=== PATIENT | male | born 1965 | race Caucasian/White ===

== ENCOUNTER 2019-04-19 10:04 | Day surgery (SDC) | payer BC ==
[2019-04-18 17:55] VITALS: BMI 33.5
[2019-04-19] VITALS (12 sets, daily range): BP systolic 100–125; BP diastolic 58–82; PULSE 86–94; RESP 14–20; Ht 167.6 cm; Wt 93.0 kg
[~2019-04-19] VITALS: Ht 167.6 cm; Wt 93.0 kg
[~2019-04-19 10:04] MED LIST: CHOL500051 PO; CIPROFLOXACIN 400 MG in D5W 200 ML IVPB ONE; GLIP5TAB13 PO; LANS15CA5 PO; LISI2.5T59 PO; LORA10TA3 PO; METF100010 PO; METO-448 PO; MITOMYCIN 40 MG VIAL IS ONE; TAMS-14 PO
[2019-04-19] MEDS ORDERED: MIDAZOLAM 1 MG/ML 2 ML INJ ONE (11:43)
[2019-04-19] MEDS ORDERED: DESFLURANE 15 MIN ONE (11:43)
[2019-04-19] MEDS ORDERED: PROPOFOL 20 ML ONE (11:43)
[2019-04-19] MEDS ORDERED: LIDOCAINE 2% (SDV) 5 ML INJ ONE (11:43)
[2019-04-19] MEDS ORDERED: SUCCINYLCHOLINE CHLORIDE 100 MG/5 ML SYG IV ONE (11:43)
[2019-04-19] MEDS ORDERED: ROCURONIUM 50 MG INJ ONE (11:43)
[2019-04-19] MEDS ORDERED: FENTAnyl 50 MCG/ML VIAL ONE (11:44)
[2019-04-19] MEDS ORDERED: FAMOTIDINE 20 MG INJ ONE (11:46)
[2019-04-19] MEDS ORDERED: METOCLOPRAMIDE 10 MG INJ ONE (11:46)
[2019-04-19] MEDS ORDERED: ONDANSETRON 4 MG INJ ONE (11:46)
[2019-04-19] MEDS ORDERED: CIPROFLOXACIN 400MG/D5W 200 ML ONE (11:48)
[2019-04-19] MEDS ORDERED: LABETALOL HCL 20MG INJ IV PRN (12:00)
[2019-04-19] MEDS ORDERED: ONDANSETRON 4 MG INJ IV PRN (12:00)
[2019-04-19] MEDS ORDERED: HYDROmorphONE 1 MG/5 ML IV SYRINGE IV PRN ×3 (12:00)
[2019-04-19] MEDS ORDERED: MEPERIDINE 25 MG INJ IV PRN (12:00)
[2019-04-19] MEDS ORDERED: OXYCODONE/ACETAMINOPHEN (5/325) TAB PO PRN ×2 (12:00)
[2019-04-19] MEDS ORDERED: EPHEDrine 25 MG/5 ML SYG IV PRN (12:00)
[2019-04-19] MEDS ORDERED: hydrALAzine 20 MG INJ IV PRN (12:00)
[2019-04-19] MEDS ORDERED: PHENYLephrine (100 MCG/ML) 10ML SYG ONE (13:01)
== END 2019-04-19 15:14 | disposition home or self-care (01) ==
LOC: SDS 10:04
PROVIDERS: ATTEND Urology
DX: C67.9 Malignant neoplasm of bladder, unspecified (principal); I10 Essential (primary) hypertension; E78.5 Hyperlipidemia, unspecified; E11.9 Type 2 diabetes mellitus without complications; N40.0 Benign prostatic hyperplasia without lower urinary tract symptoms
CPT/HCPCS: 82962; 88307; J0744; J2175; J2250; J2370; J2405; J2765; J3010; J9280